=== PATIENT | male | born 1960 | race Caucasian/White ===

== ENCOUNTER 2016-09-20 12:59 | Observation (INO) | payer MEDICARE, OTHER ==
[2016-09-20] MEDS ORDERED: HUMIRA40 MG/0.2 SC (13:08)
[2016-09-20] MEDS ORDERED: ASPIRIN81 M1 PO (13:08)
[2016-09-20] MEDS ORDERED: ZOCOR20 M1 PO (13:09)
[2016-09-20] MEDS ORDERED: PRILOSEC OTC20 M1 PO (13:09)
[2016-09-20 13:34] LABS: BASO % 0.4 % (0-2); EOS % 1.7 % (0-7); EOSINOPHIL ABSOLUTE COUNT 0.2 tho/cmm (0.0-0.7); HCT-HEMATOCRIT 44.6 % (36.0-53.5); HGB-HEMOGLOBIN 15.6 gm/dl (13.5-17.0); IMMATURE GRANULOCYTES ABSOLUTE 0.13 tho/cmm (0-0.03); IMMATURE GRANULOCYTES PERCENT 1.2 % (0-0.3); LYMPH % 20.2 % (20-45); LYMPH ABSOLUTE COUNT 2.2 tho/cmm (0.8-4.5); MCH (MEAN CORPUSCULAR HGB) 30.6 pg (28.0-32.0); MCV (MEAN CELL VOLUME) 87.5 fl (82.0-96.0); MEAN PLATELET VOLUME 9.2 cmc (9.4-12.4); MONO % 10.2 % (0-12); MONOCYTE ABSOLUTE COUNT 1.1 tho/cmm (0.0-1.2); NEUTROPHIL ABSOLUTE COUNT 7.2 tho/cmm (1.6-8.0); NEUTROPHIL-AUTOMATED 7.2 tho/cmm (1.6-8.0); NEUTROPHILS % 66.3 % (40-80); PLATELET COUNT 299 tho/cmm (150-450); RED CELL DISTRIBUTION WIDTH 12.7 % (12.4-16.4); WHITE BLOOD COUNT 10.9 tho/cmm (4.0-10.0)
[2016-09-20 13:49] LABS: ALB/GLOB RATIO 0.7 (0.8-2.0); ALBUMIN 3.6 g/dl (3.5-5.0); ALKALINE PHOSPHATASE 116 U/L (33-138); ALT/SGPT 26 U/L (12-78); BILIRUBIN,TOTAL 0.5 mg/dl (0.0-1.5); BLOOD UREA NITROGEN 12 mg/dl (6-24); CALCIUM 8.9 mg/dl (8.5-10.5); CARBON DIOXIDE-VENOUS 23 mmol/L (22-32); CHLORIDE 107 mmol/l (96-110); CREATININE 0.92 mg/dl (0.60-1.30); GLUCOSE 96 mg/dL (70-110); LIPASE 198 U/L (73-393); SODIUM 140 mmol/L (135-145); eGFR VALUE FOR BLACK >90 mL/Min
[2016-09-20 14:04] LABS: ANION GAP 14 mmol/L (0-20); AST/SGOT 22 U/L (10-40)
[2016-09-20 14:50] LABS: URINE BILIRUBIN NEGATIVE (NEG); URINE BLOOD MODERATE (NEG); URINE GLUCOSE (UA) NEGATIVE (NEG); URINE KETONE SMALL (NEG); URINE LEUKOCYTE ESTERASE NEGATIVE (NEG); URINE NITRITE NEGATIVE (NEG); URINE PROTEIN NEGATIVE (NEG)
[2016-09-20 14:53] LABS: URINE APPEARANCE CLEAR; URINE COLOR YELLOW
[2016-09-20 15:07] LABS: URINE AMORPHOUS 2+; URINE BACTERIA 1+; URINE RBC RARE /[HPF] (0-5); URINE WBC 0 /[HPF] (0-5)
[2016-09-21 11:35] LABS: URINE BILIRUBIN NEGATIVE (NEG); URINE BLOOD MODERATE (NEG); URINE GLUCOSE (UA) NEGATIVE (NEG); URINE KETONE NEGATIVE (NEG); URINE LEUKOCYTE ESTERASE NEGATIVE (NEG); URINE NITRITE NEGATIVE (NEG); URINE PROTEIN SMALL (NEG)
[2016-09-21 11:36] LABS: URINE APPEARANCE CLEAR; URINE COLOR DARK YELLOW
[2016-09-21 11:54] LABS: URINE EPITHELIAL CELLS 0-2 /[HPF] (0-10); URINE MUCUS 1+
[2016-09-21] MEDS ORDERED: TOPROL XL25 M1 PO (16:24)
[2016-09-21] MEDS ORDERED: CIPRO500 M2 PO (16:25)
== END 2016-09-21 16:45 ==
LOC: EDMED 12:59 → EMR2 16:37 → CAR1 19:00
PROVIDERS: Emergency Medicine; Physician Assistant; ADMIT Internal Medicine Cardiovascular Disease
DX: R07.9 Chest pain, unspecified (principal); I25.10 Atherosclerotic heart disease of native coronary artery without angina pectoris; E78.5 Hyperlipidemia, unspecified; M06.9 Rheumatoid arthritis, unspecified; Z82.49 Family history of ischemic heart disease and other diseases of the circulatory system; Z79.82 Long term (current) use of aspirin; Z79.899 Other long term (current) drug therapy; Z95.5 Presence of coronary angioplasty implant and graft; Z98.890 Other specified postprocedural states
CPT/HCPCS: A9500; C8929; G0378